=== PATIENT | female | born 1970 | race African-American/Black ===

== ENCOUNTER 2019-05-27 19:57 | Emergency (ER) | payer BC ==
[2019-05-27] MEDS: ONDANSETRON (ODT) 4 MG TAB ODT (21:41)
[2019-05-27] MEDS: HYDROCODONE/APAP (10/325) TAB PO (21:42)
== END 2019-05-27 23:21 | disposition home or self-care (01) ==
LOC: FTE 23:21
DX: S06.0X0A Concussion without loss of consciousness, initial encounter (principal); S93.401A Sprain of unspecified ligament of right ankle, initial encounter; W01.198A Fall on same level from slipping, tripping and stumbling with subsequent striking against other object, initial encounter; Y92.9 Unspecified place or not applicable
CPT/HCPCS: 70450; 73610-RT; 73630; 81025; 99284-25

== ENCOUNTER 2019-07-17 05:02 | Emergency (ER) | payer BC ==
[2019-07-17] MEDS: KETOROLAC 30 MG INJ IM (05:59)
[2019-07-17 06:13] LABS: ADD UMIC NO; UR ASCORBIC ACID NEGATIVE (NEGATIVE); UR BILIRUBIN (Dip) NEGATIVE (NEGATIVE); UR BLOOD (Dip) NEGATIVE (NEGATIVE); UR CLARITY CLEAR (CLEAR); UR COLOR YELLOW (YELLOW); UR GLUCOSE (Dip) NEGATIVE (NEGATIVE); UR KETONES (Dip) NEGATIVE (NEGATIVE); UR LEUKOCYTE ESTERASE (Dip) NEGATIVE Leu/ul (NEGATIVE); UR NITRITE (Dip) NEGATIVE (NEGATIVE); UR SPECIFIC GRAVITY (Dip) 1.014 (1.003-1.030); UR TOTAL PROTEIN (Dip) NEGATIVE (NEGATIVE); UR UROBILINOGEN (Dip) NEGATIVE (NEGATIVE)
[2019-07-17] MEDS: HYDROCODONE/APAP (10/325) TAB PO (06:31)
== END 2019-07-17 06:35 | disposition home or self-care (01) ==
LOC: FTE 05:02
DX: M54.41 Lumbago with sciatica, right side (principal); R10.2 Pelvic and perineal pain; Z85.43 Personal history of malignant neoplasm of ovary
CPT/HCPCS: 81003; 81025; 96372; 99284-25